=== PATIENT | female | born 1965 | race Hispanic/Latino ===

== ENCOUNTER 2019-04-05 18:27 | Inpatient (IN) | payer BC ==
[~2019-04-05] VITALS: Ht 152.4 cm; Wt 82.1 kg
--- OUTSIDE RECORDS SUMMARY | 2019-04-05 18:30 | XMS REPORT | Clinical Summary ---
Author Author Sushil Jainism Organization [facility] Address Unknown Phone Unavailable Care Team Providers Care Warehouse Assistant Name Role Phone PCP Unavailable Allergies Not on File Medications Not on file Active Problems Not on file Encounters Care Team Description Date Type Specialty 08/24/2018 Clinical Corporate Wellness Support after 04/04/2018 Immunizations Name Dates Previously Given Next Due FLUCELVAX QUAD PF (0.5mL 08/24/2018 syringe) Social History Date Tobacco Use Types Packs/Day Years Used Never Assessed Sex Assigned at Date Recorded Not on file Industry Job Start Date Occupation Not on file Not on file Not on file Travel End Travel History Travel Start No recent travel history available. Last Filed Vital Signs Not on file Plan of Treatment Health Maintenance Due Date Last Done Comments CERVICAL CANCER SCREENING 1984 BREAST CANCER SCREENING 2013 COLON CANCER SCREENING 2013 SHINGLES VACCINES (#1) 2013 INFLUENZA VACCINE 06/28/2019 08/24/2018 Results Not on fileafter 04/04/2018 Advance Directives Patient has advance care planning documents on file. For more information, patricia nixon contact: Sushil Davis [address] [place] [address]
[2019-04-05 19:18] LABS: BASOPHILS # (AUTO) 0.1 (0.0-0.1); BASOPHILS % 1.1 % (0.0-1.0); EOSINOPHILS # (AUTO) 0.2 (0.0-0.4); EOSINOPHILS % 3.6 % (0.0-6.0); HEMATOCRIT 37.9 % (34.2-44.1); HEMOGLOBIN 13.3 g/dL (12.0-16.0); LYMPHOCYTES # (AUTO) 1.2 (1.0-3.2); LYMPHOCYTES % 23.6 % (18.0-39.1); MEAN CORPUSCULAR HEMOGLOBIN 31.9 pg (28-32); MEAN CORPUSCULAR HGB CONC 35.1 g/dL (31-35); MEAN CORPUSCULAR VOLUME 90.9 fL (81-99); MONOCYTES # (AUTO) 0.6 (0.2-0.8); MONOCYTES % 11.8 % (4.4-11.3); NEUTROPHILS # (AUTO) 3.1 (2.1-6.9); NEUTROPHILS % 59.7 % (38.7-80.0); PLATELET COUNT 100 x10e3/uL (140-360); RED BLOOD COUNT 4.17 x10e6/uL (3.6-5.1); RED CELL DISTRIBUTION WIDTH 14.1 % (11.7-14.4)
[2019-04-05 19:23] LABS: INR 1.12; PROTHROMBIN TIME 14.9 seconds (11.9-14.5)
[2019-04-05 19:24] LABS: PARTIAL THROMBOPLASTIN TIME 30.9 seconds (23.8-35.5)
[2019-04-05 19:32] LABS: ALANINE AMINOTRANSFERASE 47 IU/L (0-55); ALBUMIN/GLOBULIN RATIO 0.8 (0.8-2.0); ALKALINE PHOSPHATASE 186 IU/L (40-150); ANION GAP 12.6 mmol/L (8-16); BLOOD UREA NITROGEN 29 mg/dL (7-26); BUN/CREATININE RATIO 19 (6-25); CALCIUM 9.8 mg/dL (8.4-10.2); CARBON DIOXIDE 29 mmol/L (22-29); CHLORIDE 93 mmol/L (98-107); CREATINE KINASE 333 IU/L (29-168); CREATININE, SERUM 1.54 mg/dL (0.57-1.11); EST GLOMERULAR FILTRATION RATE 35 ML/MIN (60-); GLUCOSE 98 mg/dL (74-118); POTASSIUM 3.6 mmol/L (3.5-5.1); SODIUM 131 mmol/L (136-145)
--- NOTE | 2019-04-05 19:38 | NUR ---
inst on need for urine, pt states does not feel like she can void at present, drinking contrast for CT. call gamboa in reach, will press button when needs to void
[2019-04-05 20:32] LABS: CLARITY,URINE CLEAR (CLEAR); COLOR,URINE YELLOW (YELLOW)
[2019-04-05 20:33] LABS: BILIRUBIN,URINE NEGATIVE (NEGATIVE); KETONES,URINE NEGATIVE (NEGATIVE); LEUKOCYTE ESTERASE ,URINE NEGATIVE (NEGATIVE); NITRITE,URINE NEGATIVE (NEGATIVE); PROTEIN,URINE DIPSTICK NEGATIVE (NEGATIVE); URINE UROBILINOGEN 0.2 mg/dL (0.2 - 1)
[2019-04-05 20:34] LABS: AMORPHOUS SEDIMENT,URINE MODERATE (FEW); BACTERIA,URINE FEW /HPF; EPITHELIAL CELLS,URINE MODERATE /LPF; WBC,URINE (MAN) 0-5 /HPF (0-5)
--- NOTE | 2019-04-05 20:53 | Diagnostic Imaging Report ---
EXAMINATION: CHEST 2 VIEWS INDICATION: Hard to breathe. COMPARISON: None FINDINGS: TUBES and LINES: None. LUNGS and PLEURA: Increased density in the mid to lower left hemithorax suggestive of a combination of pleural effusion and atelectasis versus pneumonia. Mild bilateral perihilar, peribronchial thickening. No pneumothorax. HEART AND MEDIASTINUM: The cardiomediastinal silhouette is obscured, however, appears enlarged. BONES AND SOFT TISSUES: No acute osseous lesion. Soft tissues are unremarkable. UPPER ABDOMEN: No free air under the diaphragm. IMPRESSION: Findings suggestive of a left pleural effusion and associated left lower lobe pneumonia versus atelectasis. Signed by: Dr. Milan Bourgeois M.D. on 04/05/2019 8:50 PM
--- NOTE | 2019-04-05 21:21 | Diagnostic Imaging Report ---
EXAM: CT Abdomen and Pelvis WITHOUT contrast INDICATION: Abdominal pain and distention. COMPARISON: None. TECHNIQUE: Abdomen and pelvis were scanned utilizing a multidetector helical scanner from the lung base to the pubic symphysis without administration of IV contrast. Absence of intravenous contrast decreases sensitivity for detection of focal lesions and vascular pathology. Coronal and sagittal reformations were obtained. Routine protocol was performed. IV CONTRAST: None. ORAL CONTRAST: Water RADIATION DOSE: Total DLP: 725.05 mGy*cm Estimated effective dose: (DLP x 0.015 x size factor) mSv COMPLICATIONS: None FINDINGS: Examination limited due to the lack of contrast. LINES and TUBES: None. LOWER THORAX: Small left pleural effusion and associated left basilar atelectasis. Right lower lobe platelike atelectasis. HEPATOBILIARY: Cirrhotic hepatic morphology. No focal hepatic lesions. No biliary ductal dilation. GALLBLADDER: Surgically absent. SPLEEN: Splenomegaly. PANCREAS: No focal masses or ductal dilatation. ADRENALS: No adrenal nodules KIDNEYS/URETERS: No hydronephrosis. No cystic or solid mass lesions. No stones. GI TRACT: No abnormal distention, wall thickening, or evidence of bowel obstruction. There are a few diverticula scattered throughout the colon without evidence of diverticulitis. Appendix is not clearly visualized. PELVIC ORGANS/BLADDER: Unremarkable. LYMPH NODES: No lymphadenopathy. VESSELS: Unremarkable. PERITONEUM / RETROPERITONEUM: Moderate volume of ascites. BONES: Unremarkable. SOFT TISSUES: Mild diffuse subcutaneous edema. IMPRESSION: 1. Moderate volume ascites. 2. Hepatic cirrhosis. 3. Splenomegaly. 4. Left pleural effusion and associated atelectasis. 5. Anasarca. Signed by: Dr. Milan Bourgeois M.D. on 04/05/2019 9:18 PM
[2019-04-05] MEDS ORDERED: PANTOPRAZOLE SO40 MG PO (21:34)
[2019-04-05] MEDS ORDERED: FERROUS SULFAT325 MG PO (21:34)
[2019-04-05] MEDS ORDERED: GLIMEPIRIDE2 MG PO (21:34)
[2019-04-05] MEDS ORDERED: METFORMIN HCL850 MG PO (21:34)
[2019-04-05] MEDS ORDERED: PROAIR HFA INH8.5 GM INH (21:34)
[2019-04-05] MEDS ORDERED: INVOKANA PO (21:34)
[2019-04-05] MEDS ORDERED: PRAVASTATIN SOD10 MG PO (21:34)
--- OUTSIDE RECORDS SUMMARY | 2019-04-05 21:43 | XMS REPORT | Clinical Summary ---
Author Author Sushil Temple Organization [facility] Address Unknown Phone Unavailable Care Team Providers Care Motion Graphics Artist Name Role Phone PCP Unavailable Allergies Not [...] more information, patricia nixon contact: Sushil Davis [address] [place] [address]
--- OUTSIDE RECORDS SUMMARY | 2019-04-05 21:43 | XMS REPORT ---
Author [facility] Address Unknown Phone Unavailable Care Team Providers Care Golf Cart Attendant Name Role Phone Frank BROOKS Unavailable Unavailable Problems This patient has no known problems. Allergies, Adverse Reactions, Alerts This patient has no known allergies or adverse reactions. Medications This patient has no known medications. Results Test Description Test Time Test Comments Text Results Atomic Results Result Comments CT ABDOMEN/PELVIS WO 2019-04-05 21:12:00 [place] [address] Patient Name: PAULETTE MCCARTY MR #: [id number] : 1965 Age/Sex: 54/F Req #: [id number] Adm Physician: Ordered by: [facility]ASKINS HOME CARE PHYSICAL THERAPIST Report #: [id number] Location: ER Room/Bed: Procedure: [id number] CT/CT ABDOMEN/PELVIS WO Exam Date: 04/05/19 Exam Time: 2015 REPORT STATUS: Signed EXAM: CT Abdomen and Pelvis WITHOUT contrast INDICA TION: Abdominal pain and distention. COMPARISON: None. TECHNIQUE: Abdomen and pelvis were scanned utilizing a multidetector helical scanner from the lung base to the pubic symphysis without administration of IV contrast. Absence of intravenous contrast decreases sensitivity for detection of focal lesions and vascular pathology. Coronal and sagittal reformations were obtained. Routine protocol was performed. IV CONTRAST: None. ORAL CONTRAST: Water RADIATION DOSE: Total DLP: 725.05 mGy*cm Estimated effective dose: (DLP x 0.015 x size factor) mSv COMPLICATIONS: None FINDINGS: Examination limited due to the lack of contrast. LINES and TUBES: None. LOWER THORAX: Small left pleural effusion and associated left basilar atelectasis. Right lower lobe platelike atelectasis. HEPATOBILIARY: Cirrhotic hepatic morphology. No focal hepatic lesions. No biliary ductal dilation. GALLBLADDER: Surgica lly absent. SPLEEN: Splenomegaly. PANCREAS: No focal masses or ductal dilatation. ADRENALS: No adrenal nodules KIDNEYS/URETERS: No hydronephrosis. No cystic or solid mass lesions. No stones. GI TRACT: No abnormal distention, wall thickening, or evidence of bowel obstruction. There are a few diverticula scattered throughout the colon without evidence of diverticulitis. Appendix is not clearly visualized. PELVIC ORGANS/BLADDER: Unremarkable. LYMPH NODES: No lymphadenopathy. VESSELS: Unremarkable. PERITONEUM / RETROPERITONEUM: Moderate volume of ascites. BONES: Unremarkable. SOFT TISSUES: Mild diffuse subcutaneous edema. IMPRESSION: 1. Moderate volume ascites. 2. Hepatic cirrhosis. 3. Splenomegaly. 4. Left pleural effusion and associated atelectasis. 5. Anasarca. Signed by: Dr. Milan Anna M.D. on 04/05/2019 9:18 PM Dictated By: JORGE ANNA MD, MD 17 Transcribed By: BRYSON on 04/05/192117 COPY TO: [facility]ASKINS HOME CARE PHYSICAL THERAPIST CHEST 2 VIEWS 2019-04-05 20:48:00 [place] [address] Patient Name: PAULETTE MCCARTY MR #: [id number] : 1965 Age/Sex: 54/F Req #: [id number] Adm Physician: Ordered by: DU HASKINS HOME CARE PHYSICAL THERAPIST Report #: [id number] Location: ER Room/Bed: Procedure: [id number] DX/CHEST 2 VIEWS Exam Date: Exam Time: REPORT STATUS: Signed EXAMINATION: CHEST 2 VIEWS INDICATION: Hard to breathe. COM PARISON: None FINDINGS: TUBES and LINES: None. LUNGS and PLEURA: Increased density in the mid to lower left hemithorax suggestive of a combination of pleural effusion and atelectasis versus pneumonia. Mild bilateral perihilar, peribronchial thickening. No pneumothorax. HEART AND MEDIASTINUM: The cardiomediastinal silhouette is obscured, however, appears enlarged. BONES AND SOFT TISSUES: No acute osseous lesion. Soft tissues are unremarkable. UPPER ABDOMEN: No free air under the diaphragm. IMPRESSION: Findings suggestive of a left pleural effusion and associated left lower lobe pneumonia versus atelectasis. Signed by: Dr. Milan Anna M.D. on 04/05/2019 8:50 PM Dictated By: JORGE ANNA MD, MD 49 Transcribed By: BRYSON on 04/05/192049 COPY TO: DU HASKINS NP
[2019-04-05] MEDS ORDERED: ONDANSETRON HCL INJ 2MG/ML 2ML 2 MG/ML VIAL IV PRN (21:45)
[2019-04-05] MEDS ORDERED: SODIUM CHLORIDE FLUSH 10 ML SYR INJ PRN (21:45)
[2019-04-05] MEDS ORDERED: DEXTROSE 50% SYRINGE 50 ML IV PRN (21:45)
[2019-04-05 22:38] VITALS: BP 136/61
[2019-04-05 23:00] VITALS: BP 136/61
[2019-04-06] VITALS (7 sets, daily range): BP systolic 123–144; BP diastolic 56–68
--- NOTE | 2019-04-06 06:36 | NUR ---
The patient is sleeping on her right side. Respirations are even and unlabored. Patient appears comfortable. Bed low, wheels locked and call light within reach.
[2019-04-06 07:26] LABS: BASOPHILS # (AUTO) 0.1 (0.0-0.1); BASOPHILS % 1.4 % (0.0-1.0); EOSINOPHILS # (AUTO) 0.2 (0.0-0.4); EOSINOPHILS % 4.2 % (0.0-6.0); HEMATOCRIT 35.2 % (34.2-44.1); HEMOGLOBIN 12.3 g/dL (12.0-16.0); LYMPHOCYTES # (AUTO) 1.1 (1.0-3.2); LYMPHOCYTES % 24.9 % (18.0-39.1); MEAN CORPUSCULAR HEMOGLOBIN 32.1 pg (28-32); MEAN CORPUSCULAR HGB CONC 34.9 g/dL (31-35); MEAN CORPUSCULAR VOLUME 91.9 fL (81-99); MONOCYTES # (AUTO) 0.7 (0.2-0.8); MONOCYTES % 15.4 % (4.4-11.3); NEUTROPHILS # (AUTO) 2.3 (2.1-6.9); NEUTROPHILS % 54.1 % (38.7-80.0); PLATELET COUNT 86 x10e3/uL (140-360); RED BLOOD COUNT 3.83 x10e6/uL (3.6-5.1); RED CELL DISTRIBUTION WIDTH 14.3 % (11.7-14.4)
[2019-04-06] MEDS: INSULIN REGULAR, HUMAN 100 UNIT/1 ML 3ML VIAL SQ SCH ×4 (07:30→20:47)
--- NOTE | 2019-04-06 07:30 | NUR ---
PT IS ASLEEP, NO S/S OF DISTRESS, CHEST IS RISING UP AND DOWN, UNLABORED BREATHING. SIDE RAILS UPX2, BED IN LOWEST POSITION, AND CALL BROWN WITHIN REACH.
[2019-04-06 07:38] LABS: ALBUMIN 2.6 g/dL (3.5-5.0); ALBUMIN/GLOBULIN RATIO 0.8 (0.8-2.0); ANION GAP 12.2 mmol/L (8-16); CALCIUM 9.3 mg/dL (8.4-10.2); CREATININE, SERUM 1.2 mg/dL (0.57-1.11); POTASSIUM 4.2 mmol/L (3.5-5.1)
--- NOTE | 2019-04-06 08:00 | NUR ---
CONSENT SIGNED FOR PARACENTESIS.
[2019-04-06] MEDS ORDERED: ALBUMIN 25% 25GM 100ML 0.25 GM/ML BTL IV NR (08:15)
--- NOTE | 2019-04-06 09:20 | NUR ---
PT LEFT FOR PARACENTESIS. NO S/S OF DISTRESS.
--- NOTE | 2019-04-06 10:20 | NUR ---
RADIOLOGY NOTIFIED NURSE ABOUT 4,950 ML OF FLUID REMOVED FROM PARACENTESIS. PT IS BEING BROUGHT BACK UP TO THE UNIT.
[2019-04-06] MEDS: CEFTRIAXONE SOD 1 GM/NS 50 ML 50 ML IV SCH (10:30)
--- NOTE | 2019-04-06 10:40 | NUR ---
PT IS BACK FROM PARACENTESIS PROCEDURE. NO S/S OF DISTRESS OR COMPLICATIONS.
--- NOTE | 2019-04-06 10:52 | Diagnostic Imaging Report ---
Date and Time: 04/06/2019 Procedure: Ultrasound-guided paracentesis reaming press operator: Dr. Coffman Pre-operative diagnosis: Ascites Post-operative diagnosis: Ascites Conscious Sedation: None The patient's heart rate and pulse oximetry were continuously monitored by the interventional radiology nurse. Blood pressure was monitored at 5 minute intervals. Additional Medications: Lidocaine 1% for local anesthesia Estimated blood loss: Minimal Blood products administered: None Complications: No immediate Specimens: 4950 cc pink, milky fluid Implants: None DISCUSSION: Informed consent was obtained and documented in the medical record after discussion of risks and benefits. The right upper abdomen was prepped and draped in the standard sterile fashion. A suitable percutaneous approach to the ascitic fluid was identified and 1% lidocaine was infiltrated into the skin and subcutaneous tissues for local anesthesia. Then under continuous sonographic guidance, a 5 Chinese MOD Systemseh needle catheter was advanced into the ascitic fluid. The catheter was advanced off the needle and connected to vacuum bottle with subsequent evacuation of 4950 cc pink, milky fluid. The catheter was removed and a sterile dressing was applied. The patient tolerated the procedure well without immediate complication. FINDINGS: Moderate ascites IMPRESSION: Successful ultrasound-guided paracentesis with evacuation of 4950 cc of fluid as above. Specimen was submitted for laboratory analysis as requested by the referring clinical team. Signed by: Dr. Dhaval Coffman M.D. on 04/06/2019 10:49 AM
--- NOTE | 2019-04-06 10:52 | Diagnostic Imaging Report ---
Date and Time: 04/06/2019 Procedure: Ultrasound-guided paracentesis punch operator: Dr. Coffman Pre-operative diagnosis: Ascites Post-operative diagnosis: Ascites Conscious Sedation: None The patient's heart rate and pulse oximetry were continuously monitored by the interventional radiology nurse. Blood pressure was monitored at 5 minute intervals. Additional Medications: Lidocaine 1% for local anesthesia Estimated blood loss: Minimal Blood products administered: None Complications: No immediate Specimens: 4950 cc pink, milky fluid Implants: None DISCUSSION: Informed consent was obtained and documented in the medical record after discussion of risks and benefits. The right upper abdomen was prepped and draped in the standard sterile fashion. A suitable percutaneous approach to the ascitic fluid was identified and 1% lidocaine was infiltrated into the skin and subcutaneous tissues for local anesthesia. Then under continuous sonographic guidance, a 5 [place] [employer] needle catheter was advanced into the ascitic fluid. The catheter was advanced off the needle and connected to vacuum bottle with subsequent evacuation of 4950 cc pink, milky fluid. The catheter was removed and a sterile dressing was applied. The patient tolerated the procedure well without immediate complication. FINDINGS: Moderate ascites IMPRESSION: Successful ultrasound-guided paracentesis with evacuation of 4950 cc of fluid as above. Specimen was submitted for laboratory analysis as requested by the referring clinical team. Signed by: Dr. Dhaval Coffman M.D. on 04/06/2019 10:49 AM
[2019-04-06] MEDS ORDERED: MORPHINE SULFATE 2 MG/ML SYR 1ML IV PRN (12:00)
[2019-04-06] MEDS ORDERED: MORPHINE SULFATE INJ 4 MG/ML INJ 1ML IV PRN (12:00)
[2019-04-06] MEDS ORDERED: DEXTROSE 50% SYRINGE 50 ML IV PRN (12:00)
[2019-04-06 12:32] LABS: BODY FLUID APPEARANCE TURBID; BODY FLUID COLOR RED
[2019-04-06 12:33] LABS: BODY FLUID TYPE asciyties; RBC,BODY FLUID 5297 cells/uL; WBC,BODY FLUID 223 cells/uL
[2019-04-06] MEDS: FUROSEMIDE INJ 10 MG/ML 4 ML VIAL IV SCH ×3 (13:27→23:50)
[2019-04-06 13:37] LABS: LYMPHOCYTES,BODY FLUID 45 %; MONO/MACROPHG,BODY FLUID 24 %; NEUTROPHILS,BODY FLUID 2 %; OTHER CELLS,BODY FLUID 29 %
[2019-04-06] MEDS ORDERED: SODIUM CHLORIDE 0.9% 250ML 250 ML ONE (13:43)
--- NOTE | 2019-04-06 14:10 | NUR ---
PT IS NOT EXPERIENCING ANY CRAMPING IN THE LEGS. PT STATES, "I CAN BREATHE BETTER EVER SINCE I CAME BACK FROM MY PROCEDURE." NO S/S OF DISTRESS. BED IN LOWEST POSITION, SIDE RAILS UP X2, AND CALL BROWN WITHIN REACH.
--- NOTE | 2019-04-06 15:53 | Consultation ---
DATE OF CONSULTATION: REASON FOR CONSULTATION: Ascites, rule out spontaneous bacterial peritonitis. HISTORY OF PRESENT ILLNESS: This is a 54-year-old female. She was diagnosed a year ago with liver cirrhosis, nonalcoholic due to fatty liver. The patient presented with distention of her abdomen over the last few days. There is no fever, no chills, no nausea, no vomiting, no diarrhea, no specific injury or trauma. The patient comes in. The patient is currently lying in bed, comfortable. PAST MEDICAL HISTORY: Liver cirrhosis with apparently esophagitis for a year at least. PAST SURGICAL HISTORY: Cholecystectomy, cataract surgery. ALLERGIES: NKA. SOCIAL HISTORY: There is no smoking, drug abuse, or alcohol abuse. FAMILY HISTORY: Hypertension. REVIEW OF SYSTEMS: At the present time, GENERAL: She is feeling fair. There is no fever, no chills. HEENT: There is no headache, visual changes, or hearing changes. GI: There is no nausea, no vomiting, no diarrhea. There is abdominal distention. : There is no urgency or frequency. SKIN: There is no other rash. JOINTS: There is no edema or erythema. LABORATORY DATA: White count of 5.25, hemoglobin 13.3. Sodium of 135, potassium 4.2. Creatinine 1.20, when she first came, it was 1.54. Her bilirubin 1.9, AST 100, ALT 47. Her glucose was 98. Her chest x-ray showed left pleural effusion. Her abdominal CAT scan showed moderate volume ascites and hepatic cirrhosis with splenomegaly, anasarca, and left pleural effusion. PHYSICAL EXAMINATION: GENERAL: She is currently alert, oriented, does not seem to be in acute distress. VITAL SIGNS: Stable. Currently afebrile. HEENT: She is not icteric. NECK: Supple. CHEST: Clear bilateral. HEART: S1, S2. No S3, S4, or murmur. ABDOMEN: Soft, distended. EXTREMITIES: No edema. SKIN: No rash. IMPRESSION: 1. Ascites, concerned about spontaneous bacterial peritonitis. The patient has no fever, no chills. I agree with ultrasound-guided paracentesis. We will check white cell count and diff, protein, glucose, culture and sensitivity. We will put the patient on Rocephin 1 g IV q.24 hours in the meantime. 2. Acute kidney injury with probably underlying chronic kidney disease. 3. Liver cirrhosis with splenomegaly. PLAN: Recheck CBC. Recheck chem panel. We will follow with you. Thank you for asking me to see this patient. MD AYAH Luna/KACI /[id number]
--- NOTE | 2019-04-06 16:10 | NUR ---
Nutrition Screen Note RD Recommendation for Physician: - Rec adding low sodium to ADA diet as medically appropriate - Rec MVi with thiamine and folic acid - RD provided diet education on 04/06 Plan of Care: RD following, monitoring for tolerance and adequacy Nutrition reason for involvement: Diagnosis Primary Diagnose(s): ascites, cirrhosis, dyspnea, pleural effusion PMH: no H&P in chart Ht: 60in Wt: 181lb BMI: 35.3kg/m2 IBW: 100lb RD Assessment: (04/06) Chart reviewed. Labs and meds reviewed. 54yo F, who was admitted for ascites with 4900cc fluids drawn. Visited pt in the room. Pt reported decreased meal intake x 1week RN CLINICAL DOCUMENTATION but appetite has improved today with ~50-75% observed lunch intake. Unknown weight loss hx due to ascites. No sign of muscle/ fat loss upon NFPA. No complains of nausea or vomiting. Pt denied any chewing or swallowing difficulty. Pt stated I dont drink alcohol at all. RD provided diet education and pt was agreeable with plan. Will continue to monitor and follow. Current Diet: ADA diet Malnutrition Evaluation (04/06) The patient does not meet criteria for a specified degree of malnutrition at this time. Will re-evaluate at follow-up as appropriate. Diet Education Needs Assessment:. Diet education indicated, pt was agreeable with plan. Learner(s): pt Time spent: 15minutes Barriers: No barriers identified. Cultural/Language Modifications: No cultural/language modifications noted. Pt speaks Faroese. Readiness: Acceptance Method: Handout, explanation Topics: Cirhosis nutrition therapy (sodium, MVi w/minerals, tips to increase calorie intake with ascites) Understanding/Compliance: Expect fair understanding/compliance from pt. Will benefit from reinforcement. All questions have been answered. Nutrition Care Level: low Signed: Shaylee Hastings, MS, RD, LD
[2019-04-06] MEDS: SPIRONOLACTONE 25 MG TAB PO SCH (17:11)
[2019-04-06] MEDS: PANTOPRAZOLE SOD 40 MG TABEC PO SCH (17:12)
[2019-04-06] MEDS: GLIMEPIRIDE 2 MG TAB PO SCH (17:15)
--- NOTE | 2019-04-06 18:10 | NUR ---
PT IS IN BED RESTING WITH EYES OPENED. LAYING ON SEMI-FOWLERS POSITION WITH NO SOB PER PATIENT. NO S/S OF DISTRESS. SIDE RAILS UP X2, BED IN LOWEST POSITION, ANC CALL BROWN WITHIN REACH.
--- NOTE | 2019-04-06 19:00 | NUR ---
patient received awake, lying quietly in bed. no c/o pain noted. respirations even and unlabored. pm assessment complete. patient instructed to call for assistance when needed.
--- NOTE | 2019-04-06 19:33 | History and Physical ---
CHIEF COMPLAINT: Shortness of breath, abdominal distention. HISTORY OF PRESENT ILLNESS: This is a 54-year-old female with known history of nonalcoholic fatty liver VERDUZCO cirrhosis, type 2 diabetes, acid reflux and hyperlipidemia, presents to the ED with worsening anasarca and abdominal distention with shortness of breath. The patient reports this has been ongoing for more than a week now. She is not on any diuretics. She was diagnosed with VERDUZCO liver cirrhosis about a year ago with Dr. Subramanian, GI specialist. She has not followed up since at his office. She now reports some shortness of breath. Imaging studies consistent with pulmonary edema. She saw her PCP, was told to take some antibiotics and was discharged home. Due to worsening breathing and anasarca, came to the ED for further evaluation and management. REVIEW OF SYSTEMS: Pertinent positives: Abdominal distention with ascites, shortness of breath with pleural effusion. Pertinent negatives: Denies any chest pain, palpitation, nausea, vomiting, diarrhea, dysuria, hematuria, frequency, urgency, lightheadedness, dizziness, abdominal pain, headache, cough, congestion, fever, or any other complaints. The rest of 14-point review of systems has been reviewed with the patient and are negative. ALLERGIES: NO KNOWN DRUG ALLERGIES. MEDICATIONS: Iron tablets 325 mg daily, glimepiride 2 mg p.o. b.i.d., Protonix 40 mg p.o. b.i.d., albuterol inhaler, metformin 350 mg p.o. b.i.d., pravastatin 10 mg daily, and Invokana 150 mg daily. PAST MEDICAL HISTORY: Type 2 diabetes, hyperlipidemia, VERDUZCO liver cirrhosis, acid reflux. FAMILY HISTORY: Hypertension and diabetes. SOCIAL HISTORY: No drugs. No alcohol. Does not smoke. Good social support. PHYSICAL EXAMINATION: VITAL SIGNS: Temperature 97.7, respiratory rate is 18, blood pressure 134/61, and pulse ox is 96% on room air. GENERAL: Not in acute distress. Alert and oriented x3. Cooperative on examination. HEENT: Head is normocephalic and atraumatic. Eyes; pupils are equal, round, and reactive to light bilaterally. Extraocular movements are intact bilaterally. Throat, no evidence of any erythema or exudates in the posterior pharynx. Has poor dentition. NECK: Supple. Good range of motion. PULMONARY: Clear to auscultation bilaterally. No wheezing, no rales, no rhonchi, no crackles appreciated. CARDIOVASCULAR: Positive S1, S2. No murmurs, rubs, or gallops appreciated. ABDOMEN: Soft, nondistended, and nontender to palpation. Bowel sounds present. MUSCULOSKELETAL: Strength is 5/5 throughout. No evidence of any muscle deficits on examination. No weakness appreciated. NEUROLOGICAL: Cranial nerves 2 through 12 grossly intact. No evidence of any neurological deficits on exam. SKIN: Intact. Warm to touch. Good cap refill. PSYCHIATRIC: Normal affect and mood. EXTREMITIES: No edema. Good range of motion throughout. LAB FINDINGS: Show white count is 4.2, hemoglobin is 12.3, hematocrit is 35, platelets of 86. Coagulation; PT 14.9, INR 1.1, PTT 31. Chemistry; sodium 135, potassium 4.2, chloride 97, bicarb 30, anion gap of 12, BUN is 28, creatinine is 1.2, glucose is 90. Total bilirubin is 1.9, AST 87, ALT 42, alkaline phosphatase 157. CK 333. Troponins are negative. BNP 26. Albumin is 2.6. Urinalysis was negative. MICROBIOLOGY: Gram stain pending. Urine culture is pending. IMAGING STUDIES: CT abdomen and pelvis showed moderate volume ascites. Hepatic cirrhosis. Splenomegaly. Left pleural effusion with associated atelectasis. Anasarca. Chest x-ray showed some findings of left pleural effusion associated with left lower lobe pneumonia versus atelectasis. IMPRESSION: 1. Shortness of breath with underlying pleural effusion, likely secondary to ascites. 2. Nonalcoholic steatohepatitis liver cirrhosis with ascites status post paracentesis. 3. Type 2 diabetes. 4. Anasarca. PLAN: At this time, GI has been consulted. Status post paracentesis with 5 L removed. Gram stain and culture are all pending as well as the laboratory findings for the ascites fluid. Put on Lasix 40 mg IV q.6 hours x4 doses, aldactone 50 b.i.d. Continue his loperamide. Add insulin sliding scale. Continue with IV Rocephin for now. Start on Lovenox for DVT prophylaxis. Get a.m. labs. Discussed case with nursing staff. MD KAYLIN Pedersen/KACI /[id number]
--- NOTE | 2019-04-06 23:20 | Consultation ---
DATE OF CONSULTATION: 04/06/2019 Consult Note HISTORY OF PRESENT ILLNESS: This is 54 years old, known to me, who has a history of cirrhosis from fatty liver, presented to the hospital because of abdominal distention over several days. The patient denies any abdominal pain. Denies any nausea, vomiting, or fever. Her workup so far revealed that the fluid analysis did not show any evidence of SBP, and she has thrombocytopenia with a platelet count of 100 on admission. Liver enzymes mildly elevated with bilirubin 1.9 and AST of 87. She did have a CAT scan of the abdomen and pelvis, which shows ascites, hepatic cirrhosis, and splenomegaly. She did have upper endoscopy about a year or so ago, which only shows some esophagitis. PAST MEDICAL HISTORY: Cirrhosis secondary to fatty liver . PAST SURGICAL HISTORY: Cholecystectomy. ALLERGIES: NONE. SOCIAL HISTORY: No smoking or alcohol use. Noncontributory. CURRENT MEDICATIONS: Including Lasix, pantoprazole, insulin and antibiotic treatment as well as iron. PHYSICAL EXAMINATION: GENERAL: She is awake, alert, appears to be stable, not integrative at this point. VITAL SIGNS: Afebrile, currently with stable vital signs. HEAD, EYES, EARS, NOSE, AND THROAT: Normocephalic, atraumatic. Sclerae are anicteric. NECK: Supple. HEART: Regular. LUNGS: Sounds clear. ABDOMEN: Soft, minimally distended. There is nontender. EXTREMITIES: No cyanosis. No clubbing. LAB VALUES: BUN , creatinine 1.2, sodium 135, and chloride 97. Bilirubin 1.9, AST of 87, ALT of 42, and alkaline phosphatase is 157. WBC of 4.29 today and platelet count of 86. IMPRESSION: 1. Cirrhosis secondary to fatty liver. 2. ascites status post paracentesis. RECOMMENDATIONS: Continue on current care at this point with diuretics, as well as low-sodium diet. The patient will need to have an upper endoscopy again sometimes later on as an outpatient. MD JOEY Hernadez/MODL /[id number] cc: Shahram Gómez MD
[2019-04-07] VITALS (7 sets, daily range): BP systolic 95–129; BP diastolic 49–68
[2019-04-07] MEDS: FUROSEMIDE INJ 10 MG/ML 4 ML VIAL IV SCH (05:22)
[2019-04-07 06:17] LABS: BASOPHILS # (AUTO) 0.1 (0.0-0.1); BASOPHILS % 1.4 % (0.0-1.0); EOSINOPHILS # (AUTO) 0.1 (0.0-0.4); EOSINOPHILS % 2.5 % (0.0-6.0); HEMOGLOBIN 12.2 g/dL (12.0-16.0); LYMPHOCYTES % 23.6 % (18.0-39.1); MEAN CORPUSCULAR HEMOGLOBIN 32.2 pg (28-32); MEAN CORPUSCULAR HGB CONC 34.9 g/dL (31-35); MEAN CORPUSCULAR VOLUME 92.3 fL (81-99); MONOCYTES # (AUTO) 0.7 (0.2-0.8); MONOCYTES % 15.7 % (4.4-11.3); NEUTROPHILS # (AUTO) 2.4 (2.1-6.9); NEUTROPHILS % 56.6 % (38.7-80.0); PLATELET COUNT 83 x10e3/uL (140-360); RED BLOOD COUNT 3.79 x10e6/uL (3.6-5.1); RED CELL DISTRIBUTION WIDTH 14.3 % (11.7-14.4)
[2019-04-07 06:44] LABS: ALBUMIN 2.8 g/dL (3.5-5.0); ANION GAP 11.4 mmol/L (8-16); CALCIUM 9.1 mg/dL (8.4-10.2); CREATININE, SERUM 0.98 mg/dL (0.57-1.11); POTASSIUM 3.4 mmol/L (3.5-5.1)
[2019-04-07] MEDS: FERROUS SULFATE 325 MG TAB PO SCH (08:15)
[2019-04-07] MEDS: GLIMEPIRIDE 2 MG TAB PO SCH ×2 (08:15→16:49)
[2019-04-07] MEDS: PANTOPRAZOLE SOD 40 MG TABEC PO SCH ×2 (08:15→16:49)
[2019-04-07] MEDS: SPIRONOLACTONE 25 MG TAB PO SCH ×2 (08:15→16:49)
[2019-04-07] MEDS: INSULIN REGULAR, HUMAN 100 UNIT/1 ML 3ML VIAL SQ SCH ×4 (08:30→21:00)
[2019-04-07] MEDS: CEFTRIAXONE SOD 1 GM/NS 50 ML 50 ML IV SCH (09:30)
[2019-04-07] MEDS ORDERED: POTASSIUM CHLORIDE 20 MEQ TAB CR PO ONE (10:00)
[2019-04-07] MEDS ORDERED: ONDANSETRON HCL 4 MG ORAL DISINTEGRATING TAB PO PRN (10:30)
--- NOTE | 2019-04-07 14:28 | Progress Note ---
DATE: 04/07/2019 Medicine Progress Note SUBJECTIVE: The patient is doing much better today with no complaints. She is reporting that her abdomen is much more distended, though she had like approximately 5 L removed yesterday. Lower extremity edema is all much improved now. PHYSICAL EXAMINATION: VITAL SIGNS: Temperature 97.7, pulse 86, respiratory rate is 18, blood pressure 118/59, pulse ox 96% on room air. GENERAL: Not in acute distress. Alert and oriented x3. Cooperative on examination. HEENT: Head is normocephalic and atraumatic. Eyes; pupils are equal, round and reactive to light bilaterally. Extraocular movements are intact bilaterally. NECK: Supple. Good range of motion. THROAT: No evidence of erythema or exudates in the posterior pharynx. Has poor dentition. PULMONARY: Clear to auscultation bilaterally. No wheezing, rales, or rhonchi. No crackles appreciated. CARDIOVASCULAR: Positive S1, S2. No murmurs, rubs, or gallops appreciated. ABDOMEN: It is distended, nontender to palpation. Bowel sounds present. MUSCULOSKELETAL: Strength is 5/5 throughout. No evidence of any muscle deficits on examination. No weakness appreciated. NEUROLOGICAL: Cranial nerves II through XII grossly intact. No evidence of any neurological deficits on exam. SKIN: Intact. Warm to touch. Good cap refill. PSYCHIATRIC: Normal affect and mood EXTREMITIES: She has maybe trace to 1+ pedal edema. LAB FINDINGS: Show white count 4.3, hemoglobin 12, hematocrit 35, platelets of 83. Chemistry; sodium 136, potassium 3.4, chloride 96, bicarb 32, anion gap of 11, BUN 26, creatinine 0.98, glucose is 206. MICROBIOLOGY: Blood culture pleural fluid gram stain shows no organism. Urine culture, no growth. IMPRESSION: 1. Shortness of breath with underlying pleural effusion, likely due to ascites, now improved. 2. Anne cirrhosis with underlying ascites, status post paracentesis, now with increased distention. 3. Type 2 diabetes. 4. Anasarca. PLAN: At this time per GI, the patient can be followed up as an outpatient for EGD. She did have a paracentesis performed on 04/06/2019, 5 L removed. While she continues to have increased abdominal distention, which we will arrange for Tuesday for paracentesis. Gram stain has been so far no growth and culture has been no growth as well. Continue with IV diuretics and Aldactone. ID is following very closely. She is on IV Rocephin. Lovenox for DVT prophylaxis. MD KAYLIN Pedersen/KACI /[id number]
--- NOTE | 2019-04-07 17:27 | NUR ---
PT UP ON SIDE OF BED DENIES PAIN ,NO DISCOMFORT NOTED
--- NOTE | 2019-04-07 19:30 | NUR ---
Received patient resting in bed. A&Ox4, respirations even & unlabored, no distress noted. Patient denies any needs at this time. Call light within reach, side rails x2 raised and bed set to lowest position.
--- NOTE | 2019-04-07 21:30 | NUR ---
Report given to oncoming nurse
[2019-04-08] VITALS: BP 123/61
[2019-04-08 04:00] VITALS: BP 120/61
--- NOTE | 2019-04-08 04:05 | NUR ---
Patient laying in bed with HOB slightly elevated. No sob noted. No acute distress noted. Patient in stable condition, will continue to monitor.
[2019-04-08 05:58] LABS: BASOPHILS # (AUTO) 0.1 (0.0-0.1); BASOPHILS % 1.2 % (0.0-1.0); EOSINOPHILS # (AUTO) 0.2 (0.0-0.4); EOSINOPHILS % 3.7 % (0.0-6.0); HEMATOCRIT 35.1 % (34.2-44.1); HEMOGLOBIN 11.9 g/dL (12.0-16.0); LYMPHOCYTES # (AUTO) 1.2 (1.0-3.2); LYMPHOCYTES % 27.7 % (18.0-39.1); MEAN CORPUSCULAR HEMOGLOBIN 31.6 pg (28-32); MEAN CORPUSCULAR HGB CONC 33.9 g/dL (31-35); MEAN CORPUSCULAR VOLUME 93.4 fL (81-99); MONOCYTES # (AUTO) 0.6 (0.2-0.8); NEUTROPHILS # (AUTO) 2.3 (2.1-6.9); NEUTROPHILS % 53.4 % (38.7-80.0); PLATELET COUNT 83 x10e3/uL (140-360); RED BLOOD COUNT 3.76 x10e6/uL (3.6-5.1); RED CELL DISTRIBUTION WIDTH 14.1 % (11.7-14.4)
[2019-04-08 06:17] LABS: BLOOD UREA NITROGEN 23 mg/dL (7-26); BUN/CREATININE RATIO 29 (6-25); CALCIUM 8.7 mg/dL (8.4-10.2); CARBON DIOXIDE 31 mmol/L (22-29); CHLORIDE 95 mmol/L (98-107); EST GLOMERULAR FILTRATION RATE > 60 ML/MIN (60-); SODIUM 133 mmol/L (136-145)
[2019-04-08 06:24] LABS: GLUCOSE 58 mg/dL (74-118)
[2019-04-08] MEDS: INSULIN REGULAR, HUMAN 100 UNIT/1 ML 3ML VIAL SQ SCH (07:30)
--- NOTE | 2019-04-08 07:35 | NUR ---
PT IN BED SLEEPING ,NO S/S DISCOMFORT
[2019-04-08 07:56] VITALS: BP 137/63
[2019-04-08] MEDS: GLIMEPIRIDE 2 MG TAB PO SCH (08:18)
[2019-04-08] MEDS: PANTOPRAZOLE SOD 40 MG TABEC PO SCH (08:18)
[2019-04-08] MEDS: FERROUS SULFATE 325 MG TAB PO SCH (08:18)
[2019-04-08] MEDS: CEFTRIAXONE SOD 1 GM/NS 50 ML 50 ML IV SCH (08:19)
[2019-04-08 08:23] VITALS: BP 137/63
[2019-04-08 12:09] VITALS: BP 142/63
[2019-04-08] MEDS ORDERED: CEFDINIR300 MG PO (12:24)
[2019-04-08] MEDS ORDERED: LASIX40 MG PO (12:24)
[2019-04-08] MEDS ORDERED: ALDACTONE25 MG PO (12:25)
--- NOTE | 2019-04-08 12:39 | NUR ---
PT DISCHARGED HOME,IV DCD WITHOUT REDNESS OR SWELLING,TRANSPORTED TO AUTO VIA W/C,PRESCRIPTIONS AND INSTRUCTIONS GIVEN COPY ON CHART,TRANSPORTED TO AUTO VIA W/C
--- NOTE | 2019-04-09 04:10 | Discharge Summary ---
FINAL DISCHARGE DIAGNOSES: 1. Shortness of breath secondary to pleural effusion secondary to underlying ascites. 2. 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 3. Type 2 diabetes. 4. Anasarca, improved. 5. Thrombocytopenia, secondary to liver cirrhosis. CONSULTANTS: ID, GI. PHYSICAL EXAMINATION: VITAL SIGNS: Temperature 97.4, pulse 85, respiratory rate 18, blood pressure 137/63, and pulse ox 97% on room air. LAB FINDINGS: Showed a white count 4.3, hemoglobin 12, hematocrit 35, platelets of 83. Coagulation; PT 14, INR 1.1, and PTT 30. Chemistry; sodium 133, potassium 4, chloride 95, bicarb 31, anion gap of 11, BUN 23, creatinine 0.8, glucose is 292, calcium is 8.7. Total bilirubin is 1.8, AST 73, ALT 33. Troponins were negative. Albumin is 2.8. Urinalysis negative. Body fluid shows turbid red in color, 2 neutrophils seen. MICROBIOLOGY: Urine cultures were negative. Gram stain ascites fluid negative. IMAGING STUDIES: CT abdomen and pelvis shows ascites, hepatic cirrhosis, splenomegaly and left pleural effusion with some associated atelectasis and anasarca. Chest x-ray shows left-sided pleural effusion. Paracentesis was performed, 5 L removed. HOSPITAL COURSE: This is a 54-year-old female with known history of VERDUZCO, liver cirrhosis, comes in with lower extremity edema and abdominal distention and shortness of breath. GI was consulted. The patient underwent a paracentesis with 5 L removed. Ascites fluid culture was negative. She was on IV antibiotics and discharged on oral Omnicef. She was started on diuretics, Lasix and Aldactone and will be discharged on Lasix and Aldactone as well. GI evaluated the patient, felt the patient can be discharged home and can follow up early next week for any additional paracentesis if needed. The patient will follow up on liver cirrhosis with underlying GI as an outpatient. The patient discharged home. ID cleared the patient for discharge home and will be discharged on oral Omnicef. On the day of discharge, the patient is doing well, back to normal baseline with no other complaints. On the day of discharge, vital signs were stable, labs reviewed and stable. The patient was seen, evaluated, examined thoroughly on the day of discharge. No other complaints. The patient verbalized understanding and agrees to plan of care to follow up as an outpatient with the primary care physician in 1 week and GI in about 1 week's time. MEDICATIONS: See med reconciliation form. We are going to add Omnicef for 7 more days, Lasix and Aldactone. DISPOSITION: Home. CONDITION: Stable. DIET: Heart healthy. In the event of any worsening symptoms, the patient was advised to come back to the ED for further evaluation. Discharge summary took greater than 35 minutes. MD KAYLIN Pedersen/KACI /[id number]
== END 2019-04-08 12:39 | disposition home or self-care (01) | DRG 442 ==
LOC: ER 18:27 → ERHOLD 21:35 → MED/SURG3 23:16 → OBSVTOIN 04-07 14:53
PROVIDERS: ADMIT Internal Medicine; ATTEND Internal Medicine
PROC: 0W9G3ZX Drainage of Peritoneal Cavity, Percutaneous Approach, Diagnostic (ICD-10-PCS; principal; 2019-04-06)
DX: K75.81 Nonalcoholic steatohepatitis (NASH) (principal); J90 Pleural effusion, not elsewhere classified; R18.8 Other ascites; N17.9 Acute kidney failure, unspecified; D61.818 Other pancytopenia; K21.9 Gastro-esophageal reflux disease without esophagitis; E78.5 Hyperlipidemia, unspecified; Z90.49 Acquired absence of other specified parts of digestive tract; Z83.3 Family history of diabetes mellitus; Z82.49 Family history of ischemic heart disease and other diseases of the circulatory system; Z79.84 Long term (current) use of oral hypoglycemic drugs; E11.22 Type 2 diabetes mellitus with diabetic chronic kidney disease; N18.9 Chronic kidney disease, unspecified
CPT/HCPCS: 36415; 49083; 71046; 74176; 74470; 80048; 80053; 81001; 82550; 82553; 82945; 82948; 83880; 84157; 84484; 85025; 85610; 85730; 87070; 87086; 87205; 88112; 88305; 89051; 99284; G0378; J0696; J1940; J7050; P9047

== ENCOUNTER 2019-04-12 09:39 | Emergency (ER) | payer BC ==
[~2019-04-12] VITALS: Ht 152.4 cm; Wt 82.1 kg
[~2019-04-12 09:39] MED LIST: ALDACTONE25 MG PO; CEFDINIR300 MG PO; FERROUS SULFAT325 MG PO; GLIMEPIRIDE2 MG PO; INVOKANA PO; LASIX40 MG PO; METFORMIN HCL850 MG PO; PANTOPRAZOLE SO40 MG PO; PRAVASTATIN SOD10 MG PO; PROAIR HFA INH8.5 GM INH
--- OUTSIDE RECORDS SUMMARY | 2019-04-12 09:42 | XMS REPORT | Clinical Summary ---
Author Author Sushli Caodaism Organization [facility] Address Unknown Phone Unavailable Care Team Providers [employer] Name Role Phone PCP Unavailable Allergies Not on File Medications Not on file Active Problems Not on file Encounters Care Team Description Date Type Specialty 08/24/2018 Clinical Corporate Wellness Support after 04/11/2018 Immunizations Name Dates Previously Given Next Due [...] VACCINE 06/28/2019 08/24/2018 Results Not on fileafter 04/11/2018 Advance Directives Patient has advance care planning documents on file. For more information, patricia nixon contact: Sushil Davis [address] [place] [address]
--- NOTE | 2019-04-12 10:35 | NUR ---
BLADDER SCAN PERFORMED AT THIS TIME, NOTED TO HAVE APPROX [phone] IN SUPRAPUBIC REGION, PT C/O DISCOMFORT WITH PRESSURE FROM SONOGRAM, DR. WELCH MADE AWARE AT THIS TIME.
[2019-04-12 10:37] LABS: CLARITY,URINE SL CLOUDY (CLEAR); COLOR,URINE YELLOW (YELLOW); LEUKOCYTE ESTERASE ,URINE NEGATIVE (NEGATIVE); NITRITE,URINE NEGATIVE (NEGATIVE)
[2019-04-12 10:38] LABS: BILIRUBIN,URINE NEGATIVE (NEGATIVE); KETONES,URINE NEGATIVE (NEGATIVE); PROTEIN,URINE DIPSTICK NEGATIVE (NEGATIVE); URINE UROBILINOGEN 0.2 mg/dL (0.2 - 1)
[2019-04-12 10:41] LABS: BACTERIA,URINE RARE /HPF; EPITHELIAL CELLS,URINE MODERATE /LPF; WBC,URINE (MAN) 0-5 /HPF (0-5)
--- NOTE | 2019-04-12 10:54 | NUR ---
BLADDER SCAN PERFORMED. 518ML
--- NOTE | 2019-04-12 11:25 | NUR ---
DR. WELCH AT [facility] FOR PATIENT EVAL, EXPLAINING RISKS AND BENEFITS OF THORACENTESIS.
--- NOTE | 2019-04-12 11:30 | NUR ---
INFORMED CONSENT OBTAINED AT THIS TIME, PT AWARE OF PURPOSE OF PROCEDURE ALONG WITH RISKS AND BENEFITS OF PROCEDURES.
--- NOTE | 2019-04-12 12:13 | Diagnostic Imaging Report ---
Exam: Abdominal film Clinical History: Ascites Comparison: CT abdomen and pelvis without contrast 04/05/2019 DISCUSSION: The bowel gas pattern shows no dilated, air-filled loops of bowel. No mass effect or organomegaly. No abnormal calcifications. Right upper quadrant surgical clips compatible with prior cholecystectomy. IMPRESSION: Nonobstructive bowel gas pattern. Signed by: Dr. Dhaval Coffman M.D. on 04/12/2019 12:10 PM
--- NOTE | 2019-04-12 12:50 | NUR ---
2 ATTEMPTS MADE FOR ULTRASOUND GUIDED PARACENTESIS AT THIS TIME BY DR. WELCH, UNSUCCESSFUL AT THIS TIME, MINIMAL FLUID NOTED TO DRAINAGE DEVICE, NAD NOTED, PT REASSURED FOR COMFORT.
[2019-04-12] MEDS ORDERED: HYDROCODONE/APAP 10MG-325MG TAB PO ONE (13:00)
[2019-04-12] MEDS ORDERED: LIDOCAINE 5% PATCH TP ONE (13:15)
--- NOTE | 2019-04-12 13:30 | NUR ---
ANOTHER TWO UNSUCCESSFUL ROUNDS OF PARACENTESIS PERFORMED BY DR. WELCH, UNABLE TO COLLECT SPECIMENS FOR PATHOLOGY AT THIS TIME, NAD NOTED. PT REASSURED FOR COMFORT.
--- NOTE | 2019-04-12 14:20 | NUR ---
ATTENPTED TO PROVIDE WANG FOR PT AT THIS TIME, REFUSING AT THIS TIME, DR. WELCH MADE AWARE.
--- NOTE | 2019-04-12 15:50 | NUR ---
XEROFORM DRESSING APPLIED TO PARACENTESIS SITE AT THIS TIME, PT TOLERATED WELL, NAD NOTED.
[2019-04-12 15:59] VITALS: BP 115/51
== END 2019-04-12 16:08 | disposition home or self-care (01) ==
LOC: ER 09:39
DX: R30.0 Dysuria (principal); R18.8 Other ascites
CPT/HCPCS: 49083; 74018; 81001; 99283; C1729